=== PATIENT | male | born 1960 | race Caucasian/White ===

== ENCOUNTER 2018-07-12 06:56 | Day surgery (SDC) | payer OTHER ==
[2018-07-12] MEDS: SOD CHLORIDE 0.9% 1,000 ML IV (08:20)
[2018-07-12] MEDS: MIDAZOLAM 1 MG/ML 2 ML INJ ×2 (10:40→10:46)
[2018-07-12] MEDS: FENTAnyl 50 MCG/ML VIAL (10:46)
[2018-07-12] MEDS ORDERED: HYDROCODONE/APAP (5/325) TAB PO (11:30)
[2018-07-12] MEDS: LIDOCAINE 1% (MPF) 5 ML VIAL (11:52)
== END 2018-07-12 14:20 | disposition home or self-care (01) ==
LOC: SDS 06:56
DX: I12.9 Hypertensive chronic kidney disease with stage 1 through stage 4 chronic kidney disease, or unspecified chronic kidney disease (principal); N18.9 Chronic kidney disease, unspecified; E11.9 Type 2 diabetes mellitus without complications
CPT/HCPCS: 50200; 77012; 82962